=== PATIENT | female | born 1950 | race Caucasian/White ===

== ENCOUNTER → 2016-06-29 | Outpatient (CLI) | payer OTHER ==
--- NOTE | 2016-07-03 10:45 | RSPPFT ---
DATE OF PROCEDURE: 06/29/16 COMMENTS: Spirometry demonstrates an FEV1 of 1.0 at 37% of predicted, FVC of 1.8 at 45%, FEF 25-75 is 18%. Post-bronchodilator study demonstrated no significant change. Lung volumes demonstrated a raised RV/TLC ratio indicating hyperinflation with air trapping. Diffusion capacity is severely reduced. Flow volume loops suggest severe obstruction. IMPRESSION: 1. Moderately severe obstructive disease. 2. No significant change following use of bronchodilator. 3. Severe loss in diffusion capacity.
== END ==
LOC: HRSP 09:49
PROVIDERS: ATTEND Internal Medicine
DX: J44.9 Chronic obstructive pulmonary disease, unspecified (principal)
CPT/HCPCS: 94060; 94726; 94729